=== PATIENT | male | born 1970 | race African-American/Black ===

== ENCOUNTER → 2017-12-21 | Outpatient (CLI) | payer BC | LOC: CFH 08:12 | PROVIDERS: ATTEND Family Medicine | DX: M48.02 Spinal stenosis, cervical region (principal); M47.22 Other spondylosis with radiculopathy, cervical region | CPT/HCPCS: 72141 ==

== ENCOUNTER 2018-09-11 04:16 | Emergency (ER) | payer BC, MEDICAID ==
[~2018-09-11] VITALS: Ht 170.2 cm; Wt 115.2 kg
--- NOTE | 2018-09-11 04:30 | NUR ---
PT TO ROOM IN GOWN AND ON MONITOR AWAITING ERP AND ORDERS. VSS FACE SWOLLEN BUT BREATHING WITHOUT DIFFICULTY.
[2018-09-11] MEDS ORDERED: CLINDAMYCIN PMX 900MG/50ML 50 ML IV ONE (05:00)
[2018-09-11] MEDS ORDERED: SODIUM CHLORIDE FLUSH 10ML SYR IVF ONE (05:00)
[2018-09-11] MEDS ORDERED: FAMOTIDINE 20 MG/2 ML IVPush ONE (05:00)
[2018-09-11] MEDS ORDERED: SODIUM CHLORIDE 0.9% 1,000ML IVBOLUS ONE (05:00)
[2018-09-11] MEDS ORDERED: methylPREDNISolone SOD SUCC 125 MG/2 ML IVPush ONE (05:00)
[2018-09-11] MEDS ORDERED: methylPREDNISolone SOD SUCC 125 MG/2 ML ONE (05:01)
[2018-09-11] MEDS ORDERED: FAMOTIDINE 20 MG/2 ML ONE (05:01)
[2018-09-11] MEDS ORDERED: EPINEPHRINE 1 MG/ML, 1ML SQ ONE (05:30)
--- NOTE | 2018-09-11 05:30 | NUR ---
IV STARTED AND MEDS GIVEN ORDERED. TO REPORTS FACIAL SWELLING FEELS BETTER.
[2018-09-11 05:38] LABS: ALBUMIN 3.7 g/dL (3.4-5.0); ANION GAP 11 mmol/L (5-15); CALCIUM 9.4 mg/dL (8.5-10.1); CHLORIDE 107 mmol/L (98-107)
[2018-09-11 05:41] LABS: ALANINE AMINOTRANSFERASE 71 U/L (12-78); ALKALINE PHOSPHATASE 86 U/L (45-117); BILIRUBIN,TOTAL 0.6 mg/dL (0.2-1.0); TOTAL PROTEIN 8.1 g/dL (6.4-8.2)
[2018-09-11 05:46] LABS: BASOPHILS # (AUTO) 0.05 x10^3/uL (0-0.1); BASOPHILS % (AUTO) 0 % (0-1); EOSINOPHILS # (AUTO) 0.51 x10^3/uL (0-0.4); EOSINOPHILS % (AUTO) 4 % (1-7); LYMPHOCYTES # (AUTO) 2.72 x10^3/uL (1-3.4); LYMPHOCYTES % (AUTO) 22 % (22-44); MD NO; MEAN CORPUSCULAR HEMOGLOBIN 30.7 pg (27.5-34.5); MEAN CORPUSCULAR HGB CONC 33.6 g/dL (33.2-36.2); MEAN CORPUSCULAR VOLUME 91.5 fL (81-97); MEAN PLATELET VOLUME 8.3 fL (7.4-10.4); MONOCYTES # (AUTO) 0.81 x10^3/uL (0.2-0.8); MONOCYTES % (AUTO) 7 % (2-9); NEUTROPHILS # (AUTO) 8.35 x10^3/uL (1.8-6.8); NEUTROPHILS % (AUTO) 67 % (42-75); PLATELET COUNT 259 x10^3/uL (130-400); RED BLOOD COUNT 5.95 x10^6/uL (4.38-5.82); RED CELL DISTRIBUTION WIDTH 13.7 % (9.4-14.8)
[2018-09-11] MEDS ORDERED: CLINDAMYCIN PMX 900MG/50ML 50 ML ONE (05:47)
[2018-09-11] MEDS ORDERED: EPINEPHRINE 1 MG/ML, 1ML ONE (05:47)
[2018-09-11] MEDS ORDERED: LISI-170 PO (06:10)
--- NOTE | 2018-09-11 06:12 | NUR ---
PT AWAITING ADMIT MD AND ORDERS.
[2018-09-11 06:58] VITALS: BP 149/97
--- NOTE | 2018-09-11 06:58 | NUR ---
REPORT FROM JOELLEN. PT IS ALERT, ORIENTED, WITH NAD. PT IS CONNECTED TO THE MONITOR. CALL LIGHT TAWNYA BECKER. FRIEND AT BEDSIDE.
--- NOTE | 2018-09-11 07:24 | NUR ---
Patient given discharge instructions and they have confirmed that they understand the instructions. Patient ambulatory with steady gait.
== END 2018-09-11 07:26 | disposition home or self-care (01) ==
LOC: ED 07:10
DX: T78.49XA Other allergy, initial encounter (principal); L03.811 Cellulitis of head [any part, except face]; I10 Essential (primary) hypertension; Z88.5 Allergy status to narcotic agent; Z79.899 Other long term (current) drug therapy; X58.XXXA Exposure to other specified factors, initial encounter
CPT/HCPCS: 36415; 80053; 85025; 87040; 93005; 96365; 96372; 96375; 99291; J0171; J2930; J3490; J7030